=== PATIENT | male | born 2000 | race Caucasian/White ===

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

== ENCOUNTER 2021-05-25 12:21 | Emergency (ER) | payer OTHER, SELFPAY ==
--- NOTE | ~2021-05-25 | XR_ITS ---
XR ankle RT min 3V 05/25/2021 15:40 INDICATION: Right ankle pain PROCEDURE: 4 views right ankle COMPARISON: No prior studies for comparison. FINDINGS: Fracture, dislocation or subluxation is not identified. The soft tissues appear within norm al limits. No foreign bodies are identified. IMPRESSION: 1: NO ACUTE BONE OR JOINT ABNORMALITY IDENTIFIED. Reviewed, dictated and finalized at location A.
--- NOTE | 2021-05-25 12:40 | PC.NURSE ---
pt informed er is very busy and erp will see gwen. instructed to notify this production underwriter for any changes in condition. right leg ^ and ice applied to right ankle.
[2021-05-25 12:49] VITALS: BP 133/72; PULSE 78; RESP 17; TEMP 36.4; O2SAT 98
[2021-05-25 15:15] VITALS: BP 151/92; PULSE 70; RESP 18; TEMP 36.1; O2SAT 98
--- NOTE | 2021-05-25 15:32 | ED.LOWEXIN ---
HPI - Extremity Injury (Lower) General Chief Complaint: Extremity Injury, Lower Stated Complaint: R ankle pain, twisted ankle Time Seen by Provider: 05/25/21 12:27 Source: patient and RN notes reviewed Mode of arrival: ambulatory Limitations: no limitations History of Present Illness complaint: ankle injury Onset (ago): hour(s) (14) Injury: Right: ankle Type of Injury: inversion Place: street/outdoors Severity: mild Severity scale (1-10): 3 Relieving factors: nothing Exacerbating factors: weight bearing and movement Context: running Associated symptoms: swelling Other symptoms: none Related Data Allergies Allergy/AdvReac Type Severity Reaction Status Date / Time No Known Allergies Allergy Verified 05/25/21 15:34 Review of Systems Review of Systems: All systems reviewed & are unremarkable except as noted in HPI and below Musculoskeletal: Musculoskeletal: Reports joint swelling PMFSH Past Medical History Medical History Ankle sprain Patient denies medical problems Exam Const: General: healthy appearing, no acute distress and alert Nutritional Appearance: well nourished Orientation/consciousness: patient oriented x3 HENMT: Head: normal to inspection Ears: external ears normal and TM's normal bilaterally General nose exam: Normal external nose present and Normal nares present Face and sinus: normal facial exam Mouth: Yes lip normal and Yes moist mucous membranes Teeth and gingiva: dentition normal Eyes: General: appearance normal, both eyes and all related structures Visual Townsend: normal visual townsend by confrontation Conjunctivae: conjunctivae normal Pupils: Equal, round and reactive pupils present EOM: EOMs intact bilaterally Neck: Neck: normal visual inspection Chest: Chest palpation & inspection: normal inspection of the chest Resp: Effort & Inspection: normal respiratory effort Auscultation: clear to auscultation bilaterally Cardio: Rate: regular rate Rhythm: regular rhythm GI: GI Palp: Yes Soft to palpation and No Tenderness to palpation present (GI) Percussion: Yes normal to percussion Auscultation: normal bowel sounds : General: Yes bladder normal to palpation and Yes no CVA tenderness Male General Exam: Yes normal external exam Back/Spine/Pelvis: Back: no CVA tenderness Skin: General skin exam: normal color Rashes: no rashes Neuro: General: patient oriented x3, moves all extremities, no meningeal signs, no focal motor deficits and CN's II-XI intact bilaterally Extrem: General: normal to inspection and no pedal edema Psych: Appearance: grossly normal and well kempt Mental Status: mental status grossly normal Affect: normal affect Thought content: Yes Normal thought content present Course Course Emergency Course: Pt was stable in the ED, with less pain. For home with RICE + NWB on crutches. Reevaluation(s) Reevaluation #1: less right ankle pain. no acute neurovascular deficit. Date: 05/25/21 Time: 13:46 Vital Signs Vital signs: Vital Signs Temperature 36.4 C 05/25/21 12:49 Pulse Rate 78 05/25/21 12:49 Respiratory Rate 17 05/25/21 12:49 Blood Pressure 133/72 05/25/21 12:49 Pulse Oximetry 98 05/25/21 12:49 Temperature 36.4 C 05/25/21 12:49 Pulse Rate 78 05/25/21 12:49 Respiratory Rate 17 05/25/21 12:49 Blood Pressure 133/72 05/25/21 12:49 Pulse Oximetry 98 05/25/21 12:49 MDM - Extremity Injury (Lower) Differential Diagnosis Differential diagnosis: Likely ankle sprain and strain and ankle fracture Medical Records Attestation: I reviewed the patient's medical records. Imaging Data Radiologist's impression: Please see report. Critical Care Time Critical Care Time Critical Care Time: No Total Critical Care Time: 0 Discharge Plan Discharge Clinical Impression: Ankle sprain Patient Disposition: Home, Self-Care Condition: Stable Instructions: Antibiotic
[2021-05-25] MEDS: IBUPROFEN 400 MG TABLET 800 MG PO (15:46)
[2021-05-25 15:52] VITALS: BP 132/79; PULSE 71; RESP 14; TEMP 36.4; O2SAT 98
== END 2021-05-25 16:09 | disposition home or self-care (01) ==
PROVIDERS: Emergency Provider Emergency Medicine
DX: S93.401A Sprain of unspecified ligament of right ankle, initial encounter (principal)
CPT/HCPCS: 73610; 99283; A9270

== ENCOUNTER 2021-10-31 15:24 | Emergency (ER) | payer OTHER, SELFPAY ==
[2021-10-31 15:33] VITALS: BP 138/66; PULSE 80; RESP 18; TEMP 35.8; O2SAT 98
--- NOTE | 2021-10-31 15:37 | ED.GENADULT ---
HPI - General Adult General Chief complaint: Upper Respiratory Infection Stated complaint: throat pain Source: patient Mode of arrival: ambulatory Limitations: no limitations History of Present Illness HPI narrative: Lucian presented to clinic with a day of worsening sore throat and pain while swallowing. He has has history of multiple episodes of strep throat. No cough or nasal congestion. No fevers, N/V or SOB reported. Related Data Allergies Allergy/AdvReac Type Severity Reaction Status Date / Time No Known Allergies Allergy Verified 05/25/21 15:34 Review of Systems Constitutional: Constitutional: Reports no additional constitutional complaints Eyes: Eyes: Reports no additional eye complaints ENT: Reports as per HPI Cardiovascular: Cardiovascular: Reports no additional cardiovascular complaints Respiratory: Respiratory: Reports no additional respiratory complaints Gastrointestinal: Gastrointestinal: Reports no additional gastrointestinal complaints Genitourinary: Genitourinary: Reports no additional male genitourinary complaints Musculoskeletal: Musculoskeletal: Reports no additional musculoskeletal complaints Integumentary/Breasts: Skin/Breast: Reports system reviewed and no additional complaints, except as docu Neurologic: Reports system reviewed and no additional complaints, except as documented Psychiatric: Psychiatric: Reports no additional psychiatric complaints Endocrine: Endocrine: Reports no additional endocrine complaints Hematologic/Lymphatic: Hematologic/Lymphatic: Reports no additional hematologic/lymphatic complaints Allergic/Immunologic: Allergic/Immunologic: Reports no additional allergic/immunologic complaints [facility] Past Medical History Medical History Ankle sprain Patient denies medical problems Exam Const: General: no acute distress and alert Orientation/consciousness: patient oriented x3 HENMT: Head: normal to inspection Other: erythematous pharynx, pus pockets on the tonsils and oropharynx. anterior cervical lymphadenopathy bilaterally Eyes: Pupils: Equal, round and reactive pupils present Neck: Neck: normal visual inspection Chest: Chest palpation & inspection: normal inspection of the chest Resp: Effort & Inspection: normal respiratory effort Auscultation: clear to auscultation bilaterally Cardio: Rate: regular rate Rhythm: regular rhythm GI: Inspection: non-distended GI Palp: Yes Soft to palpation, No Tenderness to palpation present (GI) and No Guarding due to palpation present (GI) Skin: General skin exam: normal color Rashes: no rashes Neuro: General: patient oriented x3 and moves all extremities Extrem: General: normal to inspection Psych: Mental Status: mental status grossly normal Course Vital Signs Vital signs: Vital Signs Temperature 96.5 F L 10/31/21 15:33 Pulse Rate 80 10/31/21 15:33 Respiratory Rate 18 10/31/21 15:33 Blood Pressure 138/66 10/31/21 15:33 Pulse Oximetry 98 10/31/21 15:33 Temperature 97 F L 10/31/21 15:48 Pulse Rate 78 10/31/21 15:48 Respiratory Rate 18 10/31/21 15:48 Blood Pressure 130/74 10/31/21 15:48 Pulse Oximetry 99 10/31/21 15:48 Medical Decision Making Vital Signs Vital Signs: Vital Signs Temperature 96.5 F L 10/31/21 15:33 Pulse Rate 80 10/31/21 15:33 Respiratory Rate 18 10/31/21 15:33 Blood Pressure 138/66 10/31/21 15:33 Pulse Oximetry 98 10/31/21 15:33 Temperature 97 F L 10/31/21 15:48 Pulse Rate 78 10/31/21 15:48 Respiratory Rate 18 10/31/21 15:48 Blood Pressure 130/74 10/31/21 15:48 Pulse Oximetry 99 10/31/21 15:48 Discharge Plan Discharge Clinical Impression: Pharyngitis Patient Disposition: Home, Self-Care Condition: Stable Instructions: Antibiotic Form, Pharyngitis (ED), Strep Throat (ED) Additional Instructions: Please return for any new, concerning or w
[2021-10-31 15:48] VITALS: BP 130/74; PULSE 78; RESP 18; TEMP 36.1; O2SAT 99
== END 2021-10-31 15:50 | disposition home or self-care (01) ==
PROVIDERS: Emergency Provider Family Medicine
DX: J02.9 Acute pharyngitis, unspecified (principal)
CPT/HCPCS: 99283; A9270